=== PATIENT | male | born 1980 | race Caucasian/White ===

== ENCOUNTER 2020-08-24 13:34 | Inpatient (IN) | payer BC ==
[~2020-08-24] VITALS: Ht 167.6 cm; Wt 76.2 kg
[2020-08-24] VITALS (12 sets, daily range): BP systolic 87–103; BP diastolic 35–55
[2020-08-24] MEDS ORDERED: PROPOFOL 10MG/ML 100ML 100 ML IV SCH (14:00)
[2020-08-24] MEDS ORDERED: ETOMIDATE 2MG/ML 10ML VIAL IV ONE (14:00)
[2020-08-24] MEDS ORDERED: FENTANYL CITRATE/PF 500 MCG in SODIUM CHLORIDE 0.9% 40 ML IV PRN (14:00)
[2020-08-24] MEDS ORDERED: SUCCINYLCHOLINE CHLORIDE 200MG/10ML IV ONE (14:00)
[2020-08-24] MEDS ORDERED: SODIUM CHLORIDE 0.9% 1,000 ML IV ONE ×5 (14:00→16:15)
[2020-08-24] MEDS ORDERED: MIDAZOLAM HCL 100 MG in DEXT 5% WATER 80 ML IV ONE (14:00)
[2020-08-24] MEDS ORDERED: MIDAZOLAM HCL 2 MG/2 ML VIAL IV ONE (14:00)
[2020-08-24] MEDS ORDERED: MIDAZOLAM HCL 100 MG in SODIUM CHLORIDE 0.9% 80 ML IV SCH (14:15)
[2020-08-24] MEDS ORDERED: FENTANYL CITRATE 2,500 MCG in SODIUM CHLORIDE 0.9% 200 ML IV PRN (14:15)
[2020-08-24] MEDS ORDERED: MIDAZOLAM HCL 100 MG in DEXT 5% WATER 80 ML IV SCH (14:15)
[2020-08-24 14:34] LABS: CLARITY URINE CLEAR (CLEAR); COLOR URINE YELLOW (YELLOW); KETONES URINE 2+ (NEGATIVE); LEUKOCYTE ESTERASE URINE NEGATIVE (NEGATIVE); NITRITE URINE NEGATIVE (NEGATIVE); OCCULT BLOOD URINE TRACE (NEGATIVE); PROTEIN URINE NEGATIVE (NEGATIVE); SPECIFIC GRAVITY URINE 1.028 (1.005-1.030); UROBILINOGEN URINE 0.2 E.U./dL (0.2-1.0)
[2020-08-24 14:38] LABS: HEMATOCRIT. 50.4 % (42.0-52.0); HEMOGLOBIN. 13.1 g/dL (14.0-18.0); MEAN CORPUSCULAR VOLUME 107.5 fL (80.0-94.0); MEAN PLATELET VOLUME 10.5 fl (7.4-10.4); PLATELET 450 x1000/uL (130-400); RED BLOOD CELL COUNT 4.69 mill/uL (4.7-6.1); RED CELL DISTRIBUTION WIDTH 15.3 % (11.6-14.6)
[2020-08-24 14:54] LABS: CHLORIDE 81 mEq/L (98-107)
[2020-08-24 15:00] LABS: ETHANOL BLOOD < 10 mg/dL
[2020-08-24 15:01] LABS: *AMPHETAMINES SCREEN URINE NEGATIVE (NEGATIVE); *BARBITURATES SCREEN URINE NEGATIVE (NEGATIVE); *BENZODIAZEPINES SCREEN URINE NEGATIVE (NEGATIVE); *COCAINE SCREEN URINE NEGATIVE (NEGATIVE)
[2020-08-24 15:02] LABS: PLATELET ESTIMATE INCREASED
[2020-08-24 15:02] LABS: CANNABINOID URINE SCREEN NEGATIVE (NEGATIVE); METHADONE URINE SCREEN NEGATIVE (NEGATIVE); OPIATES URINE SCREEN NEGATIVE (NEGATIVE); PHENCYCLIDINE URINE SCREEN NEGATIVE (NEGATIVE)
[2020-08-24 15:03] LABS: CREATINE KINASE 282 IU/L (39-308)
[2020-08-24] MEDS ORDERED: PANTOPRAZOLE 80 MG in SODIUM CHLORIDE 0.9% 100 ML IV SCH (15:30)
[2020-08-24] MEDS ORDERED: PIPERACILLIN SODIUM/TAZOBACTAM 4.5 G in DEXT 5% WATER 100 ML IV SCH (15:30)
[2020-08-24] MEDS ORDERED: INSULIN REGULAR (DRIP) 100 UNITS in SODIUM CHLORIDE 0.9% 99 ML IV ONE (15:30)
[2020-08-24 15:38] LABS: INR 2.2; PROTHROMBIN TIME 21.9 sec (9.6-11.0)
[2020-08-24] MEDS ORDERED: INSULIN REGULAR (DRIP) 100 UNITS in SODIUM CHLORIDE 0.9% 99 ML IV SCH (16:15)
[2020-08-24] MEDS ORDERED: PANTOPRAZOLE SODIUM 40 MG/VIAL IV ONE ×2 (16:26→17:29)
[2020-08-24 16:57] LABS: BG BASE EXCESS -26.2 mmol/L (-2.0-2.0); BG CARBOXYHEMOGLOBIN 0.3 % (0.5-1.5); BG DEOXYHEMOGLOBIN 4.3 % (0.0-5.0); BG FRACTION INSPIRED OXYGEN 60; BG METHEMOGLOBIN 0.1 % (0.0-1.5); BG OXYGEN SATURATION 95.7 % (92.0-98.5); BG OXYHEMOGLOBIN 95.3 % (94.0-97.0); BG PCO2 33.2 mmHg (35.0-45.0); BG PH 6.876 (7.350-7.450); BG PO2 110.9 mmHg (75.0-100.0); BG SAMPLE SITE LEFT BRACHIAL; BG TOTAL HEMOGLOBIN 10.6 g/dL (12.0-18.0); BG VENT MODE VENT - AC
[2020-08-24] MEDS ORDERED: SODIUM BICARBONATE 8.4% 1 MEQ/ML 50ML SYR IV ONE (17:00)
[2020-08-24] MEDS ORDERED: NOREPINEPHRINE 8 MG in DEXT 5% WATER 242 ML IV PRN ×2 (17:15→18:00)
[2020-08-24] MEDS ORDERED: GUAIFENESIN 200MG/10ML SUGAR FREE UDC PO PRN (17:15)
[2020-08-24] MEDS ORDERED: DEXTROSE 50% WATER 50ML SYRINGE IV PRN ×2 (17:15)
[2020-08-24] MEDS ORDERED: ALBUTEROL 6.7GM HFA INHALER ORI PRN (17:15)
[2020-08-24] MEDS ORDERED: ONDANSETRON HCL 4MG/2ML INJ IV PRN (17:15)
[2020-08-24] MEDS ORDERED: CLONIDINE 0.1MG TABLET PO PRN (17:15)
[2020-08-24] MEDS ORDERED: DOCUSATE SODIUM 100MG CAPSULE PO PRN (17:15)
[2020-08-24] MEDS ORDERED: MAGNESIUM/ALUMINUM HYDROXIDE/SIMETHICONE 30ML UDC PO PRN (17:15)
[2020-08-24] MEDS ORDERED: CEFTRIAXONE 1 G PREMIX 50 ML IV SCH (18:30)
[2020-08-24] MEDS: BLOOD SUGAR DIAGNOSTIC STRIP TEST SCH ×5 (19:00→23:13)
[2020-08-24] MEDS ORDERED: AZITHROMYCIN 500 MG in DEXT 5% WATER 250 ML IV SCH (20:00)
[2020-08-24 20:35] LABS: VITAMIN B12 SERUM 1995 pg/mL (211-911)
[2020-08-24 20:37] LABS: FOLIC ACID (FOLATE) SERUM > 20.00 ng/mL (>5.38)
[2020-08-24 20:38] LABS: TOTAL IRON BINDING CAPACITY 245 ug/dL (250-450)
[2020-08-24] MEDS: CEFTRIAXONE 1,000 MG in DEXTROSE 5% WATER 50 ML IV SCH (20:38)
[2020-08-24] MEDS: INSULIN REGULAR (DRIP) 100 UNITS in SODIUM CHLORIDE 0.9% 99 ML IV SCH (20:40)
[2020-08-24] MEDS: PROPOFOL 10MG/ML 100ML 100 ML IV PRN (20:43)
[2020-08-24] MEDS ORDERED: ALBUTEROL 6.7GM HFA INHALER ORI SCH (21:00)
[2020-08-24] MEDS: IPRATROPIUM/ALBUTEROL 0.5-3(2.5)MG/3ML NEB HHN SCH (21:01)
[2020-08-24] MEDS: SODIUM CHLORIDE 0.9% 1,000 ML IV SCH (22:05)
[2020-08-24 22:09] LABS: BG BASE EXCESS -17.2 mmol/L (-2.0-2.0); BG CARBOXYHEMOGLOBIN 0.2 % (0.5-1.5); BG DEOXYHEMOGLOBIN 7.1 % (0.0-5.0); BG FRACTION INSPIRED OXYGEN 60; BG HCO3 ACT 10.8 mmol/L (22.0-26.0); BG METHEMOGLOBIN 0.1 % (0.0-1.5); BG OXYGEN SATURATION 92.9 % (92.0-98.5); BG OXYHEMOGLOBIN 92.6 % (94.0-97.0); BG PCO2 33.1 mmHg (35.0-45.0); BG PH 7.132 (7.350-7.450); BG PO2 70.9 mmHg (75.0-100.0); BG SAMPLE SITE RIGHT BRACHIAL; BG TOTAL HEMOGLOBIN 12.8 g/dL (12.0-18.0); BG VENT MODE VENT - AC
[2020-08-24] MEDS: FENTANYL CITRATE/PF 2,500 MCG in SODIUM CHLORIDE 0.9% 200 ML IV PRN (23:28)
[2020-08-24] MEDS ORDERED: SODIUM BICARBONATE 100 MEQ in SODIUM CHLORIDE 0.45% 1,000 ML IV SCH (23:30)
[2020-08-24 23:55] LABS: CREATINE KINASE 291 IU/L (39-308)
[2020-08-25] VITALS (79 sets, daily range): BP systolic 92–159; BP diastolic 46–88
[2020-08-25] MEDS: BLOOD SUGAR DIAGNOSTIC STRIP TEST SCH ×23 (00:06→23:00)
[2020-08-25] MEDS: PROPOFOL 10MG/ML 100ML 100 ML IV PRN ×2 (00:35→06:30)
[2020-08-25] MEDS: IPRATROPIUM/ALBUTEROL 0.5-3(2.5)MG/3ML NEB HHN SCH ×5 (01:05→20:04)
[2020-08-25] MEDS ORDERED: DOXE50CA4 PO (01:15)
[2020-08-25] MEDS ORDERED: DOCU-272 PO (01:15)
[2020-08-25] MEDS ORDERED: BUPR1TAB33 SL (01:15)
[2020-08-25] MEDS ORDERED: INSU100I28 SQ (01:15)
[2020-08-25] MEDS ORDERED: THIA100T72 PO (01:15)
[2020-08-25] MEDS ORDERED: LOSA50TA41 PO (01:15)
[2020-08-25] MEDS ORDERED: BISA5TAB PO (01:15)
[2020-08-25] MEDS ORDERED: CLON0.1T PO (01:15)
[2020-08-25] MEDS ORDERED: DICY10SO PO (01:15)
[2020-08-25] MEDS ORDERED: METH-774 PO (01:15)
[2020-08-25] MEDS ORDERED: ROPI2TAB28 PO (01:15)
[2020-08-25] MEDS ORDERED: BISA-81 PO (01:15)
[2020-08-25] MEDS ORDERED: FOLI-43 PO (01:15)
[2020-08-25] MEDS: INSULIN REGULAR (DRIP) 100 UNITS in SODIUM CHLORIDE 0.9% 99 ML IV SCH ×4 (01:26→17:16)
[2020-08-25] MEDS: SODIUM CHLORIDE 0.9% 1,000 ML IV SCH (03:44)
[2020-08-25 05:26] LABS: CHLORIDE 121 mEq/L (98-107)
[2020-08-25 05:29] LABS: BASOPHILS % 0.2 % (0.0-2.0); HEMATOCRIT. 31.8 % (42.0-52.0); LYMPHOCYTES % 9.9 % (20.0-50.0); MEAN CORPUSCULAR HEMOGLOBIN 28.2 pg (28.0-32.0); MEAN CORPUSCULAR VOLUME 81.3 fL (80.0-94.0); MEAN PLATELET VOLUME 8.8 fl (7.4-10.4); MONOCYTES % 6.5 % (2.0-8.0); NEUTROPHILS % 83.4 % (40.0-76.0); PLATELET 223 x1000/uL (130-400); RED BLOOD CELL COUNT 3.91 mill/uL (4.7-6.1)
[2020-08-25 05:37] LABS: CREATINE KINASE 181 IU/L (39-308)
[2020-08-25 05:52] LABS: PHOSPHORUS 0.2 mg/dL (2.5-4.9)
[2020-08-25] MEDS ORDERED: POTASSIUM CHLORIDE 20MEQ/PACKET PO NR (07:00)
[2020-08-25] MEDS ORDERED: *PATIENT'S OWN MEDICATION STORAGE XX SCH (08:00)
[2020-08-25] MEDS ORDERED: SODIUM CHLORIDE 0.45% 1,000 ML IV SCH (08:30)
[2020-08-25] MEDS: PANTOPRAZOLE SODIUM 40 MG/VIAL IV SCH (08:37)
[2020-08-25] MEDS ORDERED: KCL 20MEQ/100ML PREMIX 100 ML IV NR (09:00)
[2020-08-25] MEDS ORDERED: POTASSIUM PHOS,M-BASIC-D-BASIC 30 MMOL in DEXT 5% WATER 500 ML IV ONE (09:00)
[2020-08-25] MEDS: DEXT 5%/0.45% NACL KCL 20MEQ/L 1,000 ML IV SCH ×3 (10:57→20:45)
[2020-08-25 11:04] LABS: BG BASE EXCESS 3.6 mmol/L (-2.0-2.0); BG CARBOXYHEMOGLOBIN 0.3 % (0.5-1.5); BG FRACTION INSPIRED OXYGEN 70; BG METHEMOGLOBIN 0.1 % (0.0-1.5); BG OXYHEMOGLOBIN 96.6 % (94.0-97.0); BG PCO2 36.4 mmHg (35.0-45.0); BG PH 7.488 (7.350-7.450); BG PO2 90.4 mmHg (75.0-100.0); BG SAMPLE SITE RIGHT BRACHIAL; BG TOTAL HEMOGLOBIN 10.4 g/dL (12.0-18.0); BG VENT MODE VENT - AC
[2020-08-25] MEDS ORDERED: METOPROLOL TARTRATE 5MG/5ML VIAL IV NR (11:30)
[2020-08-25] MEDS: MIDAZOLAM 100MG/100ML PMX 100 ML IV PRN (12:32)
[2020-08-25] MEDS: AZITHROMYCIN 500 MG in DEXT 5% WATER 250 ML IV SCH (15:44)
[2020-08-25 15:51] LABS: PHOSPHORUS 1.3 mg/dL (2.5-4.9)
[2020-08-25] MEDS: FENTANYL CITRATE/PF 2,500 MCG in SODIUM CHLORIDE 0.9% 200 ML IV PRN (17:43)
[2020-08-25] MEDS: CEFTRIAXONE 1,000 MG in DEXTROSE 5% WATER 50 ML IV SCH (20:45)
[2020-08-25] MEDS: ACETAMINOPHEN 325MG TABLET PO PRN (21:22)
[2020-08-25] MEDS ORDERED: SODIUM CHLORIDE 0.9% 1,000 ML IV ONE (21:30)
[2020-08-26] VITALS (82 sets, daily range): BP systolic 119–171; BP diastolic 63–89
[2020-08-26] MEDS: IPRATROPIUM/ALBUTEROL 0.5-3(2.5)MG/3ML NEB HHN SCH ×4 (00:26→22:04)
[2020-08-26] MEDS: BLOOD SUGAR DIAGNOSTIC STRIP TEST SCH ×12 (01:00→20:40)
[2020-08-26] MEDS: DEXT 5%/0.45% NACL KCL 20MEQ/L 1,000 ML IV SCH ×3 (01:38→11:49)
[2020-08-26] MEDS: INSULIN REGULAR (DRIP) 100 UNITS in SODIUM CHLORIDE 0.9% 99 ML IV SCH (02:59)
[2020-08-26] MEDS: ACETAMINOPHEN 325MG TABLET PO PRN ×4 (05:28→20:51)
[2020-08-26 05:50] LABS: CHLORIDE 130 mEq/L (98-107); HEMATOCRIT. 29.2 % (42.0-52.0); MEAN CORPUSCULAR HEMOGLOBIN 27.8 pg (28.0-32.0); MEAN CORPUSCULAR VOLUME 81.1 fL (80.0-94.0); MEAN PLATELET VOLUME 8.4 fl (7.4-10.4); PLATELET 172 x1000/uL (130-400); RED CELL DISTRIBUTION WIDTH 13.5 % (11.6-14.6)
[2020-08-26 05:54] LABS: PHOSPHORUS 1.8 mg/dL (2.5-4.9)
[2020-08-26] MEDS: MIDAZOLAM 100MG/100ML PMX 100 ML IV PRN ×2 (06:37→17:44)
[2020-08-26] MEDS: FENTANYL CITRATE/PF 2,500 MCG in SODIUM CHLORIDE 0.9% 200 ML IV PRN ×2 (08:10→20:13)
[2020-08-26] MEDS: PANTOPRAZOLE SODIUM 40 MG/VIAL IV SCH (08:38)
[2020-08-26] MEDS ORDERED: DEXTROSE 50% WATER 50ML SYRINGE IV PRN (08:45)
[2020-08-26] MEDS ORDERED: POTASSIUM PHOS,M-BASIC-D-BASIC 20 MMOL in DEXT 5% WATER 243.3333 ML IV ONE (09:00)
[2020-08-26 10:10] LABS: BG BASE EXCESS -0.9 mmol/L (-2.0-2.0); BG CARBOXYHEMOGLOBIN 0.3 % (0.5-1.5); BG DEOXYHEMOGLOBIN 2.1 % (0.0-5.0); BG FRACTION INSPIRED OXYGEN 70; BG METHEMOGLOBIN 0.2 % (0.0-1.5); BG OXYGEN SATURATION 97.9 % (92.0-98.5); BG OXYHEMOGLOBIN 97.4 % (94.0-97.0); BG PH 7.435 (7.350-7.450); BG PO2 117.5 mmHg (75.0-100.0); BG SAMPLE SITE LEFT RADIAL; BG TOTAL HEMOGLOBIN 9.8 g/dL (12.0-18.0); BG TOTAL RESPIRATORY RATE 28 b/min; BG VENT MODE VENT - AC
[2020-08-26] MEDS: INSULIN GLARGINE UD 100 UNITS/ML SYR SUBCUT SCH (11:06)
[2020-08-26 11:18] LABS: PLATELET ESTIMATE NORMAL
[2020-08-26] MEDS: INSULIN LISPRO 100 UNITS/ML SUBCUT SCH ×3 (12:41→20:53)
[2020-08-26] MEDS: AZITHROMYCIN 500 MG in DEXT 5% WATER 250 ML IV SCH (13:33)
[2020-08-26] MEDS: CEFTRIAXONE 1,000 MG in DEXTROSE 5% WATER 50 ML IV SCH (20:49)
[2020-08-27] VITALS (49 sets, daily range): BP systolic 103–167; BP diastolic 57–99
[2020-08-27] MEDS: ACETAMINOPHEN 325MG TABLET PO PRN ×5 (00:52→23:36)
[2020-08-27] MEDS: IPRATROPIUM/ALBUTEROL 0.5-3(2.5)MG/3ML NEB HHN SCH ×4 (03:24→20:42)
[2020-08-27] MEDS: MIDAZOLAM 100MG/100ML PMX 100 ML IV PRN ×2 (04:40→16:27)
[2020-08-27] MEDS: FENTANYL CITRATE/PF 2,500 MCG in SODIUM CHLORIDE 0.9% 200 ML IV PRN ×3 (04:41→23:08)
[2020-08-27] MEDS: INSULIN LISPRO 100 UNITS/ML SUBCUT SCH ×4 (06:39→20:55)
[2020-08-27] MEDS: BLOOD SUGAR DIAGNOSTIC STRIP TEST SCH ×4 (06:43→20:55)
[2020-08-27 06:54] LABS: CHLORIDE 124 mEq/L (98-107)
[2020-08-27 06:55] LABS: HEMATOCRIT. 28.7 % (42.0-52.0); HEMOGLOBIN. 9.5 g/dL (14.0-18.0); MEAN CORPUSCULAR HEMOGLOBIN 27.6 pg (28.0-32.0); MEAN CORPUSCULAR VOLUME 83.4 fL (80.0-94.0); RED BLOOD CELL COUNT 3.44 mill/uL (4.7-6.1); RED CELL DISTRIBUTION WIDTH 14.1 % (11.6-14.6)
[2020-08-27 08:13] LABS: BG BASE EXCESS 2.6 mmol/L (-2.0-2.0); BG CARBOXYHEMOGLOBIN 0.3 % (0.5-1.5); BG DEOXYHEMOGLOBIN 2.7 % (0.0-5.0); BG FRACTION INSPIRED OXYGEN 60; BG METHEMOGLOBIN 0.1 % (0.0-1.5); BG OXYGEN SATURATION 97.3 % (92.0-98.5); BG OXYHEMOGLOBIN 96.9 % (94.0-97.0); BG PCO2 35.4 mmHg (35.0-45.0); BG PH 7.483 (7.350-7.450); BG PO2 95.6 mmHg (75.0-100.0); BG SAMPLE SITE RIGHT RADIAL; BG TOTAL HEMOGLOBIN 10.5 g/dL (12.0-18.0); BG VENT MODE VENT - AC
[2020-08-27] MEDS: PANTOPRAZOLE SODIUM 40 MG/VIAL IV SCH (08:50)
[2020-08-27] MEDS ORDERED: METOCLOPRAMIDE HCL 10MG/2ML VIAL IV SCH (09:15)
[2020-08-27 10:25] LABS: PLATELET ESTIMATE SLIGHTLY DECREASED
[2020-08-27 10:27] LABS: MEAN PLATELET VOLUME 9.3 fl (7.4-10.4); PLATELET 118 x1000/uL (130-400)
[2020-08-27] MEDS: INSULIN GLARGINE UD 100 UNITS/ML SYR SUBCUT SCH (10:31)
[2020-08-27] MEDS: AZITHROMYCIN 500 MG in DEXT 5% WATER 250 ML IV SCH (14:18)
[2020-08-27] MEDS: METOPROLOL TARTRATE 25MG TABLET PO SCH ×3 (16:25→21:14)
[2020-08-27] MEDS: METOCLOPRAMIDE HCL 10MG/2ML VIAL IV PRN (16:26)
[2020-08-27] MEDS: CEFTRIAXONE 1,000 MG in DEXTROSE 5% WATER 50 ML IV SCH (20:54)
[2020-08-28] VITALS (45 sets, daily range): BP systolic 114–164; BP diastolic 64–98
[2020-08-28] MEDS: IPRATROPIUM/ALBUTEROL 0.5-3(2.5)MG/3ML NEB HHN SCH ×3 (02:22→15:24)
[2020-08-28] MEDS: MIDAZOLAM 100MG/100ML PMX 100 ML IV PRN ×2 (04:34→17:00)
[2020-08-28] MEDS: ACETAMINOPHEN 325MG TABLET PO PRN (06:30)
[2020-08-28 06:51] LABS: CHLORIDE 118 mEq/L (98-107)
[2020-08-28 06:52] LABS: BASOPHILS % 0.7 % (0.0-2.0); EOSINOPHILS % 3.5 % (0.0-5.0); HEMOGLOBIN. 10.1 g/dL (14.0-18.0); LYMPHOCYTES % 15.8 % (20.0-50.0); MEAN CORPUSCULAR HEMOGLOBIN 27.9 pg (28.0-32.0); MEAN CORPUSCULAR VOLUME 83.4 fL (80.0-94.0); MEAN PLATELET VOLUME 9.4 fl (7.4-10.4); MONOCYTES % 6.5 % (2.0-8.0); NEUTROPHILS % 73.5 % (40.0-76.0); PLATELET 128 x1000/uL (130-400); RED CELL DISTRIBUTION WIDTH 13.9 % (11.6-14.6)
[2020-08-28] MEDS: FENTANYL CITRATE/PF 2,500 MCG in SODIUM CHLORIDE 0.9% 200 ML IV PRN ×2 (08:00→17:00)
[2020-08-28 08:04] LABS: BG BASE EXCESS -1.5 mmol/L (-2.0-2.0); BG CARBOXYHEMOGLOBIN 0.3 % (0.5-1.5); BG DEOXYHEMOGLOBIN 9.7 % (0.0-5.0); BG FRACTION INSPIRED OXYGEN 50; BG HCO3 ACT 22.2 mmol/L (22.0-26.0); BG METHEMOGLOBIN 0.3 % (0.0-1.5); BG OXYGEN SATURATION 90.2 % (92.0-98.5); BG OXYHEMOGLOBIN 89.7 % (94.0-97.0); BG PCO2 33.8 mmHg (35.0-45.0); BG PEEP (cmH2O) 0 cmH2O; BG PH 7.436 (7.350-7.450); BG PO2 54.1 mmHg (75.0-100.0); BG SAMPLE SITE RIGHT RADIAL; BG TOTAL HEMOGLOBIN 10.2 g/dL (12.0-18.0); BG VENT MODE VENT - AC
[2020-08-28] MEDS: METOPROLOL TARTRATE 25MG TABLET PO SCH ×2 (08:45→20:57)
[2020-08-28] MEDS: PANTOPRAZOLE SODIUM 40 MG/VIAL IV SCH (08:45)
[2020-08-28] MEDS: INSULIN GLARGINE UD 100 UNITS/ML SYR SUBCUT SCH (10:54)
[2020-08-28] MEDS ORDERED: PIPERACILLIN/TAZOBACTAM 3.375 G/VIAL IV SCH (12:00)
[2020-08-28] MEDS: BLOOD SUGAR DIAGNOSTIC STRIP TEST SCH ×2 (12:08→17:43)
[2020-08-28] MEDS: SODIUM HYPOCHLORITE 0.125% 473ML SOLUTION TOP SCH ×2 (12:09→17:22)
[2020-08-28] MEDS: PIPERACILLIN/TAZOBACTAM 3.375 G in DEXT 5% WATER 100 ML IV SCH ×2 (12:20→17:46)
[2020-08-28] MEDS: INSULIN LISPRO 100 UNITS/ML SUBCUT SCH ×2 (12:22→17:49)
[2020-08-28] MEDS: VANCOMYCIN 1500MG in DEXTROSE 5% WATER 250ML IV SCH (13:55)
[2020-08-28] MEDS: METOCLOPRAMIDE HCL 10MG/2ML VIAL IV PRN (14:42)
[2020-08-29] VITALS (48 sets, daily range): BP systolic 120–165; BP diastolic 67–100
[2020-08-29] MEDS: PIPERACILLIN/TAZOBACTAM 3.375 G in DEXT 5% WATER 100 ML IV SCH ×5 (00:02→23:46)
[2020-08-29] MEDS: VANCOMYCIN 1500MG in DEXTROSE 5% WATER 250ML IV SCH ×3 (00:16→23:46)
[2020-08-29] MEDS: INSULIN LISPRO 100 UNITS/ML SUBCUT SCH ×5 (00:17→23:46)
[2020-08-29] MEDS: BLOOD SUGAR DIAGNOSTIC STRIP TEST SCH ×5 (00:17→23:39)
[2020-08-29] MEDS: ACETAMINOPHEN 325MG TABLET PO PRN ×3 (00:28→23:58)
[2020-08-29] MEDS: IPRATROPIUM/ALBUTEROL 0.5-3(2.5)MG/3ML NEB HHN SCH ×4 (01:09→20:27)
[2020-08-29] MEDS: MIDAZOLAM 100MG/100ML PMX 100 ML IV PRN ×2 (02:01→14:31)
[2020-08-29] MEDS: FENTANYL CITRATE/PF 2,500 MCG in SODIUM CHLORIDE 0.9% 200 ML IV PRN ×3 (03:00→21:15)
[2020-08-29 06:37] LABS: HEMOGLOBIN. 9.2 g/dL (14.0-18.0); MEAN CORPUSCULAR HEMOGLOBIN 27.5 pg (28.0-32.0); MEAN CORPUSCULAR VOLUME 83.4 fL (80.0-94.0); MEAN PLATELET VOLUME 9.2 fl (7.4-10.4); PLATELET 119 x1000/uL (130-400); RED BLOOD CELL COUNT 3.36 mill/uL (4.7-6.1); RED CELL DISTRIBUTION WIDTH 13.5 % (11.6-14.6)
[2020-08-29 06:42] LABS: CHLORIDE 110 mEq/L (98-107)
[2020-08-29 07:20] LABS: BG BASE EXCESS 1.2 mmol/L (-2.0-2.0); BG CARBOXYHEMOGLOBIN 0.3 % (0.5-1.5); BG DEOXYHEMOGLOBIN 7.6 % (0.0-5.0); BG FRACTION INSPIRED OXYGEN 50; BG HCO3 ACT 24.9 mmol/L (22.0-26.0); BG METHEMOGLOBIN 0.3 % (0.0-1.5); BG OXYGEN SATURATION 92.4 % (92.0-98.5); BG OXYHEMOGLOBIN 91.8 % (94.0-97.0); BG PCO2 35.8 mmHg (35.0-45.0); BG PEEP (cmH2O) 0 cmH2O; BG PO2 60.6 mmHg (75.0-100.0); BG SAMPLE SITE RIGHT RADIAL; BG TOTAL HEMOGLOBIN 9.6 g/dL (12.0-18.0); BG VENT MODE VENT - AC
[2020-08-29] MEDS: METOPROLOL TARTRATE 25MG TABLET PO SCH ×2 (08:04→21:12)
[2020-08-29] MEDS: PANTOPRAZOLE SODIUM 40 MG/VIAL IV SCH (08:05)
[2020-08-29] MEDS: SODIUM HYPOCHLORITE 0.125% 473ML SOLUTION TOP SCH ×2 (08:05→16:40)
[2020-08-29] MEDS: INSULIN GLARGINE UD 100 UNITS/ML SYR SUBCUT SCH (09:18)
[2020-08-29] MEDS ORDERED: TETANUS, DIPHTHERIA, PERTUSSIS VAC/PF 0.5ML (>7YR OLD) IM ONE (14:30)
[2020-08-29] MEDS: THIAMINE HCL 100MG TABLET PO SCH (16:40)
[2020-08-29 18:11] LABS: PLATELET ESTIMATE DECREASED
[2020-08-29] MEDS: QUETIAPINE FUMARATE 50MG TABLET PO SCH (21:12)
[2020-08-30] VITALS (50 sets, daily range): BP systolic 106–164; BP diastolic 62–109
[2020-08-30] MEDS: IPRATROPIUM/ALBUTEROL 0.5-3(2.5)MG/3ML NEB HHN SCH ×2 (00:18→20:37)
[2020-08-30] MEDS: MIDAZOLAM 100MG/100ML PMX 100 ML IV PRN ×2 (05:40→19:30)
[2020-08-30] MEDS: PIPERACILLIN/TAZOBACTAM 3.375 G in DEXT 5% WATER 100 ML IV SCH ×3 (05:40→17:24)
[2020-08-30] MEDS: BLOOD SUGAR DIAGNOSTIC STRIP TEST SCH ×3 (05:53→17:49)
[2020-08-30] MEDS: INSULIN LISPRO 100 UNITS/ML SUBCUT SCH ×3 (05:58→17:49)
[2020-08-30 06:38] LABS: CHLORIDE 107 mEq/L (98-107)
[2020-08-30] MEDS: ACETAMINOPHEN 325MG TABLET PO PRN ×2 (06:55→21:09)
[2020-08-30 07:05] LABS: HEPATITIS B SURFACE ANTIGEN NEGATIVE
[2020-08-30] MEDS: METOPROLOL TARTRATE 25MG TABLET PO SCH ×2 (07:44→21:09)
[2020-08-30] MEDS: FENTANYL CITRATE/PF 2,500 MCG in SODIUM CHLORIDE 0.9% 200 ML IV PRN ×2 (07:48→20:11)
[2020-08-30] MEDS: THIAMINE HCL 100MG TABLET PO SCH (08:16)
[2020-08-30] MEDS: SODIUM HYPOCHLORITE 0.125% 473ML SOLUTION TOP SCH (08:16)
[2020-08-30] MEDS: QUETIAPINE FUMARATE 50MG TABLET PO SCH ×2 (08:16→21:08)
[2020-08-30] MEDS: PANTOPRAZOLE SODIUM 40 MG/VIAL IV SCH (08:16)
[2020-08-30] MEDS: METOCLOPRAMIDE HCL 10MG/2ML VIAL IV PRN (08:17)
[2020-08-30 08:26] LABS: HEMATOCRIT. 27.4 % (42.0-52.0); HEMOGLOBIN. 9.1 g/dL (14.0-18.0); MEAN CORPUSCULAR HEMOGLOBIN 27.5 pg (28.0-32.0); MEAN CORPUSCULAR VOLUME 83.2 fL (80.0-94.0); MEAN PLATELET VOLUME 9.6 fl (7.4-10.4); PLATELET 151 x1000/uL (130-400); RED CELL DISTRIBUTION WIDTH 13.1 % (11.6-14.6)
[2020-08-30 08:30] LABS: BG BASE EXCESS 2.4 mmol/L (-2.0-2.0); BG CARBOXYHEMOGLOBIN 0.3 % (0.5-1.5); BG DEOXYHEMOGLOBIN 15.7 % (0.0-5.0); BG FRACTION INSPIRED OXYGEN 50; BG HCO3 ACT 26.1 mmol/L (22.0-26.0); BG METHEMOGLOBIN 0.3 % (0.0-1.5); BG OXYGEN SATURATION 84.2 % (92.0-98.5); BG OXYHEMOGLOBIN 83.7 % (94.0-97.0); BG PCO2 36.7 mmHg (35.0-45.0); BG PEEP (cmH2O) 0 cmH2O; BG SAMPLE SITE RIGHT RADIAL; BG TOTAL HEMOGLOBIN 9.6 g/dL (12.0-18.0); BG VENT MODE VENT - AC
[2020-08-30 09:09] LABS: PLATELET ESTIMATE NORMAL
[2020-08-30] MEDS ORDERED: POTASSIUM CHLORIDE 20MEQ/PACKET PO SCH (10:00)
[2020-08-30] MEDS: INSULIN GLARGINE UD 100 UNITS/ML SYR SUBCUT SCH (10:11)
[2020-08-30] MEDS: METOCLOPRAMIDE HCL 10MG/2ML VIAL IV SCH ×2 (12:00→17:24)
[2020-08-30] MEDS: VANCOMYCIN 1500MG in DEXTROSE 5% WATER 250ML IV SCH (12:43)
[2020-08-30 12:56] LABS: BG BASE EXCESS 3.5 mmol/L (-2.0-2.0); BG CARBOXYHEMOGLOBIN 0.3 % (0.5-1.5); BG DEOXYHEMOGLOBIN 4.9 % (0.0-5.0); BG FRACTION INSPIRED OXYGEN 50; BG HCO3 ACT 28.7 mmol/L (22.0-26.0); BG METHEMOGLOBIN 0.3 % (0.0-1.5); BG OXYGEN SATURATION 95.1 % (92.0-98.5); BG OXYHEMOGLOBIN 94.5 % (94.0-97.0); BG PCO2 46.8 mmHg (35.0-45.0); BG PH 7.405 (7.350-7.450); BG SAMPLE SITE RIGHT RADIAL; BG TOTAL HEMOGLOBIN 9.4 g/dL (12.0-18.0); BG VENT MODE VENT - CPAP
[2020-08-30] MEDS: LORAZEPAM 2MG/ML CPJ IV PRN (18:25)
[2020-08-31] VITALS (48 sets, daily range): BP systolic 105–160; BP diastolic 56–107
[2020-08-31] MEDS: VANCOMYCIN 1500MG in DEXTROSE 5% WATER 250ML IV SCH ×2 (00:44→12:22)
[2020-08-31] MEDS: PIPERACILLIN/TAZOBACTAM 3.375 G in DEXT 5% WATER 100 ML IV SCH ×4 (00:44→18:04)
[2020-08-31] MEDS: METOCLOPRAMIDE HCL 10MG/2ML VIAL IV SCH ×4 (00:44→18:04)
[2020-08-31] MEDS: LORAZEPAM 2MG/ML CPJ IV PRN ×3 (01:50→22:47)
[2020-08-31] MEDS: IPRATROPIUM/ALBUTEROL 0.5-3(2.5)MG/3ML NEB HHN SCH ×4 (03:00→21:07)
[2020-08-31] MEDS: FENTANYL CITRATE/PF 2,500 MCG in SODIUM CHLORIDE 0.9% 200 ML IV PRN ×2 (05:26→16:32)
[2020-08-31] MEDS: MIDAZOLAM 100MG/100ML PMX 100 ML IV PRN ×2 (05:45→19:00)
[2020-08-31] MEDS: BLOOD SUGAR DIAGNOSTIC STRIP TEST SCH ×4 (06:00→18:02)
[2020-08-31 06:07] LABS: HIV SCREEN 4G Non Reactive (Non Reactive)
[2020-08-31] MEDS: INSULIN LISPRO 100 UNITS/ML SUBCUT SCH ×4 (06:37→18:00)
[2020-08-31 06:53] LABS: HEMATOCRIT. 28.6 % (42.0-52.0); HEMOGLOBIN. 9.5 g/dL (14.0-18.0); MEAN CORPUSCULAR HEMOGLOBIN 27.5 pg (28.0-32.0); MEAN PLATELET VOLUME 9.2 fl (7.4-10.4); PLATELET 215 x1000/uL (130-400); RED BLOOD CELL COUNT 3.44 mill/uL (4.7-6.1)
[2020-08-31 07:05] LABS: CHLORIDE 107 mEq/L (98-107)
[2020-08-31] MEDS: PANTOPRAZOLE SODIUM 40 MG/VIAL IV SCH (08:22)
[2020-08-31] MEDS: QUETIAPINE FUMARATE 50MG TABLET PO SCH ×2 (08:22→22:14)
[2020-08-31] MEDS: THIAMINE HCL 100MG TABLET PO SCH (08:22)
[2020-08-31] MEDS: METOPROLOL TARTRATE 25MG TABLET PO SCH ×2 (08:25→22:13)
[2020-08-31] MEDS: POTASSIUM CHLORIDE 20MEQ/PACKET PO SCH (10:23)
[2020-08-31] MEDS: INSULIN GLARGINE UD 100 UNITS/ML SYR SUBCUT SCH (10:24)
[2020-08-31] MEDS ORDERED: LORAZEPAM 2MG/ML CPJ IV SCH (11:30)
[2020-08-31 11:44] LABS: PLATELET ESTIMATE NORMAL
[2020-08-31] MEDS ORDERED: MICAFUNGIN 100 MG in SODIUM CHLORIDE 0.9% 100 ML IV SCH (16:00)
[2020-09-01] VITALS (50 sets, daily range): BP systolic 112–172; BP diastolic 72–104
[2020-09-01] MEDS: BLOOD SUGAR DIAGNOSTIC STRIP TEST SCH ×4 (00:14→18:37)
[2020-09-01] MEDS: PIPERACILLIN/TAZOBACTAM 3.375 G in DEXT 5% WATER 100 ML IV SCH ×5 (00:49→23:55)
[2020-09-01] MEDS: VANCOMYCIN 1500MG in DEXTROSE 5% WATER 250ML IV SCH (00:49)
[2020-09-01] MEDS: METOCLOPRAMIDE HCL 10MG/2ML VIAL IV SCH ×5 (00:59→23:55)
[2020-09-01] MEDS: IPRATROPIUM/ALBUTEROL 0.5-3(2.5)MG/3ML NEB HHN SCH (01:56)
[2020-09-01] MEDS: FENTANYL CITRATE/PF 2,500 MCG in SODIUM CHLORIDE 0.9% 200 ML IV PRN (04:26)
[2020-09-01] MEDS: INSULIN LISPRO 100 UNITS/ML SUBCUT SCH ×4 (05:19→18:51)
[2020-09-01] MEDS: MIDAZOLAM 100MG/100ML PMX 100 ML IV PRN (05:53)
[2020-09-01 08:00] LABS: BG BASE EXCESS 2.3 mmol/L (-2.0-2.0); BG CARBOXYHEMOGLOBIN 0.3 % (0.5-1.5); BG DEOXYHEMOGLOBIN 1.9 % (0.0-5.0); BG FRACTION INSPIRED OXYGEN 40; BG HCO3 ACT 25.4 mmol/L (22.0-26.0); BG METHEMOGLOBIN 0.2 % (0.0-1.5); BG OXYGEN SATURATION 98.1 % (92.0-98.5); BG OXYHEMOGLOBIN 97.6 % (94.0-97.0); BG PCO2 33.2 mmHg (35.0-45.0); BG PEEP (cmH2O) 0 cmH2O; BG PH 7.502 (7.350-7.450); BG PO2 114.1 mmHg (75.0-100.0); BG SAMPLE SITE RIGHT RADIAL; BG TOTAL HEMOGLOBIN 8.3 g/dL (12.0-18.0); BG VENT MODE VENT - AC/VC
[2020-09-01] MEDS ORDERED: MIDAZOLAM HCL 5 MG/5 ML VIAL ONE (08:52)
[2020-09-01] MEDS ORDERED: TETRACAINE/BENZOCAINE/BUTAMBEN 20 GM SPRAY MM ONE (08:52)
[2020-09-01] MEDS ORDERED: FENTANYL CITRATE/PF 50MCG/ML 5ML VIAL ONE (08:52)
[2020-09-01] MEDS ORDERED: LIDOCAINE HCL 2% JELLY 5ML ONE (08:52)
[2020-09-01] MEDS: INSULIN GLARGINE UD 100 UNITS/ML SYR SUBCUT SCH (10:00)
[2020-09-01] MEDS: THIAMINE HCL 100MG TABLET PO SCH (10:55)
[2020-09-01] MEDS: POTASSIUM CHLORIDE 20MEQ/PACKET PO SCH (10:55)
[2020-09-01] MEDS: PANTOPRAZOLE SODIUM 40 MG/VIAL IV SCH (10:55)
[2020-09-01] MEDS: QUETIAPINE FUMARATE 50MG TABLET PO SCH ×2 (10:56→21:15)
[2020-09-01] MEDS: METOPROLOL TARTRATE 25MG TABLET PO SCH ×2 (10:56→21:15)
[2020-09-01 13:13] LABS: BG BASE EXCESS -0.3 mmol/L (-2.0-2.0); BG CARBOXYHEMOGLOBIN 0.3 % (0.5-1.5); BG DEOXYHEMOGLOBIN 5.4 % (0.0-5.0); BG HCO3 ACT 24.1 mmol/L (22.0-26.0); BG METHEMOGLOBIN 0.2 % (0.0-1.5); BG OXYGEN SATURATION 94.6 % (92.0-98.5); BG OXYHEMOGLOBIN 94.1 % (94.0-97.0); BG PCO2 38.4 mmHg (35.0-45.0); BG PH 7.416 (7.350-7.450); BG PO2 79.1 mmHg (75.0-100.0); BG SAMPLE SITE RIGHT BRACHIAL; BG TOTAL HEMOGLOBIN 8.5 g/dL (12.0-18.0); BG TOTAL RESPIRATORY RATE 26 b/min; BG VENT MODE VENT - CPAP
[2020-09-01] MEDS: LORAZEPAM 2MG/ML CPJ IV PRN ×2 (13:38→23:55)
[2020-09-01] MEDS ORDERED: IPRATROPIUM/ALBUTEROL 0.5-3(2.5)MG/3ML NEB HHN PRN (16:30)
[2020-09-02] VITALS (45 sets, daily range): BP systolic 130–172; BP diastolic 68–104
[2020-09-02] MEDS: PIPERACILLIN/TAZOBACTAM 3.375 G in DEXT 5% WATER 100 ML IV SCH (06:04)
[2020-09-02] MEDS: METOCLOPRAMIDE HCL 10MG/2ML VIAL IV SCH ×3 (06:04→18:00)
[2020-09-02] MEDS: INSULIN LISPRO 100 UNITS/ML SUBCUT SCH ×4 (06:06→18:33)
[2020-09-02] MEDS: BLOOD SUGAR DIAGNOSTIC STRIP TEST SCH ×4 (06:21→18:33)
[2020-09-02] MEDS: QUETIAPINE FUMARATE 50MG TABLET PO SCH ×2 (09:08→22:21)
[2020-09-02] MEDS: THIAMINE HCL 100MG TABLET PO SCH (09:08)
[2020-09-02] MEDS: METOPROLOL TARTRATE 25MG TABLET PO SCH ×2 (09:08→22:21)
[2020-09-02] MEDS: POTASSIUM CHLORIDE 20MEQ/PACKET PO SCH (09:08)
[2020-09-02] MEDS: PANTOPRAZOLE SODIUM 40 MG/VIAL IV SCH (09:26)
[2020-09-02] MEDS: INSULIN GLARGINE UD 100 UNITS/ML SYR SUBCUT SCH (12:13)
[2020-09-02] MEDS: LORAZEPAM 2MG/ML CPJ IV PRN (12:30)
[2020-09-03] MEDS: LORAZEPAM 2MG/ML CPJ IV PRN ×4 (00:19→22:12)
[2020-09-03] MEDS: METOCLOPRAMIDE HCL 10MG/2ML VIAL IV SCH ×4 (00:19→18:50)
[2020-09-03] MEDS: INSULIN LISPRO 100 UNITS/ML SUBCUT SCH ×4 (00:20→18:51)
[2020-09-03] MEDS: BLOOD SUGAR DIAGNOSTIC STRIP TEST SCH ×4 (00:34→18:51)
[2020-09-03 01:37] VITALS: BP 150/97
[2020-09-03 05:30] VITALS: BP 153/85
[2020-09-03 08:00] VITALS: BP 148/91
[2020-09-03] MEDS: THIAMINE HCL 100MG TABLET PO SCH (08:15)
[2020-09-03] MEDS: PANTOPRAZOLE SODIUM 40 MG/VIAL IV SCH (08:15)
[2020-09-03] MEDS: QUETIAPINE FUMARATE 50MG TABLET PO SCH ×2 (08:15→22:10)
[2020-09-03] MEDS: POTASSIUM CHLORIDE 20MEQ/PACKET PO SCH (08:15)
[2020-09-03] MEDS: METOPROLOL TARTRATE 25MG TABLET PO SCH ×2 (08:15→22:10)
[2020-09-03] MEDS: INSULIN GLARGINE UD 100 UNITS/ML SYR SUBCUT SCH (09:27)
[2020-09-03 12:00] VITALS: BP 134/71
[2020-09-03 16:00] VITALS: BP 147/78
[2020-09-03 20:00] VITALS: BP 132/84
[2020-09-04] VITALS: BP 149/91
[2020-09-04] MEDS: BLOOD SUGAR DIAGNOSTIC STRIP TEST SCH ×4 (00:37→18:44)
[2020-09-04] MEDS: INSULIN LISPRO 100 UNITS/ML SUBCUT SCH ×4 (00:38→18:44)
[2020-09-04] MEDS: METOCLOPRAMIDE HCL 10MG/2ML VIAL IV SCH ×2 (00:41→06:01)
[2020-09-04 04:00] VITALS: BP 151/90
[2020-09-04 08:00] VITALS: BP 151/93
[2020-09-04 08:22] LABS: BASOPHILS % 0.8 % (0.0-2.0); EOSINOPHILS % 1.7 % (0.0-5.0); HEMATOCRIT. 31.3 % (42.0-52.0); HEMOGLOBIN. 10.4 g/dL (14.0-18.0); MEAN CORPUSCULAR HEMOGLOBIN 27.3 pg (28.0-32.0); MEAN CORPUSCULAR VOLUME 81.9 fL (80.0-94.0); MEAN PLATELET VOLUME 8.9 fl (7.4-10.4); MONOCYTES % 5.4 % (2.0-8.0); NEUTROPHILS % 77.1 % (40.0-76.0); PLATELET 617 x1000/uL (130-400); RED BLOOD CELL COUNT 3.82 mill/uL (4.7-6.1); RED CELL DISTRIBUTION WIDTH 12.9 % (11.6-14.6)
[2020-09-04 08:37] LABS: CHLORIDE 110 mEq/L (98-107)
[2020-09-04] MEDS: QUETIAPINE FUMARATE 50MG TABLET PO SCH ×2 (09:47→21:42)
[2020-09-04] MEDS: POTASSIUM CHLORIDE 20MEQ/PACKET PO SCH (09:47)
[2020-09-04] MEDS: INSULIN GLARGINE UD 100 UNITS/ML SYR SUBCUT SCH (09:48)
[2020-09-04] MEDS: THIAMINE HCL 100MG TABLET PO SCH (09:48)
[2020-09-04] MEDS: METOPROLOL TARTRATE 25MG TABLET PO SCH ×2 (09:49→21:42)
[2020-09-04] MEDS: LORAZEPAM 1MG TABLET PO PRN ×2 (11:57→18:41)
[2020-09-04 12:00] VITALS: BP 136/89
[2020-09-04 16:00] VITALS: BP 141/91
[2020-09-04] MEDS ORDERED: INFLUENZA VACCINE 05/PF 0.5 ML VIAL IM ONE (16:15)
[2020-09-04] MEDS ORDERED: LIPASE/PROTEASE/AMYLASE 4,200/14,200/24,600 UNITS CAP DR PO SCH (17:40)
[2020-09-04] MEDS: LIPASE/PROTEASE/AMYLASE 5,000/17,000/24,000 UNITS CAP DR PO SCH (18:41)
[2020-09-04] MEDS: PIPERACILLIN/TAZOBACTAM 3.375 G in DEXT 5% WATER 100 ML IV SCH (18:44)
[2020-09-04 20:00] VITALS: BP 139/81
[2020-09-05] VITALS: BP 129/80
[2020-09-05] MEDS: PIPERACILLIN/TAZOBACTAM 3.375 G in DEXT 5% WATER 100 ML IV SCH ×3 (00:32→14:05)
[2020-09-05] MEDS: INSULIN LISPRO 100 UNITS/ML SUBCUT SCH ×5 (00:33→23:39)
[2020-09-05] MEDS: BLOOD SUGAR DIAGNOSTIC STRIP TEST SCH ×5 (00:33→23:32)
[2020-09-05 04:00] VITALS: BP 136/88
[2020-09-05] MEDS: LORAZEPAM 1MG TABLET PO PRN ×3 (04:24→18:40)
[2020-09-05] MEDS: LIPASE/PROTEASE/AMYLASE 5,000/17,000/24,000 UNITS CAP DR PO SCH ×3 (06:55→18:40)
[2020-09-05 07:51] LABS: BASOPHILS % 0.5 % (0.0-2.0); EOSINOPHILS % 1.9 % (0.0-5.0); HEMATOCRIT. 30.3 % (42.0-52.0); HEMOGLOBIN. 10.1 g/dL (14.0-18.0); LYMPHOCYTES % 17.8 % (20.0-50.0); MEAN CORPUSCULAR HEMOGLOBIN 27.4 pg (28.0-32.0); MEAN CORPUSCULAR VOLUME 82.2 fL (80.0-94.0); MEAN PLATELET VOLUME 8.2 fl (7.4-10.4); MONOCYTES % 5.9 % (2.0-8.0); NEUTROPHILS % 73.9 % (40.0-76.0); PLATELET 627 x1000/uL (130-400); RED BLOOD CELL COUNT 3.68 mill/uL (4.7-6.1); RED CELL DISTRIBUTION WIDTH 13.3 % (11.6-14.6)
[2020-09-05 08:00] VITALS: BP 147/53
[2020-09-05 08:03] LABS: CHLORIDE 112 mEq/L (98-107)
[2020-09-05 08:09] LABS: AMYLASE 42 IU/L (25-115)
[2020-09-05 08:14] LABS: CREATINE KINASE 39 IU/L (39-308)
[2020-09-05 08:22] LABS: T4 FREE 1.57 ng/dL (0.76-1.46)
[2020-09-05] MEDS: ACETAMINOPHEN 325MG TABLET PO PRN ×3 (09:47→18:40)
[2020-09-05] MEDS: METOPROLOL TARTRATE 25MG TABLET PO SCH ×2 (09:48→20:22)
[2020-09-05] MEDS: POTASSIUM CHLORIDE 20MEQ/PACKET PO SCH (09:48)
[2020-09-05] MEDS: QUETIAPINE FUMARATE 50MG TABLET PO SCH ×2 (09:48→20:22)
[2020-09-05] MEDS: THIAMINE HCL 100MG TABLET PO SCH (09:48)
[2020-09-05] MEDS: INSULIN GLARGINE UD 100 UNITS/ML SYR SUBCUT SCH (09:49)
[2020-09-05 12:00] VITALS: BP 138/89
[2020-09-05 16:00] VITALS: BP 115/74
[2020-09-05 20:00] VITALS: BP 116/57
[2020-09-06] VITALS: BP 148/70
[2020-09-06] MEDS: LORAZEPAM 1MG TABLET PO PRN ×3 (00:54→21:25)
[2020-09-06 04:00] VITALS: BP_SYST 124; BP_SYST 146; BP_DIAS 56; BP_DIAS 88
[2020-09-06] MEDS: LIPASE/PROTEASE/AMYLASE 5,000/17,000/24,000 UNITS CAP DR PO SCH ×3 (05:07→23:54)
[2020-09-06] MEDS: BLOOD SUGAR DIAGNOSTIC STRIP TEST SCH ×3 (05:48→17:16)
[2020-09-06] MEDS: INSULIN LISPRO 100 UNITS/ML SUBCUT SCH ×3 (05:52→17:17)
[2020-09-06] MEDS: ACETAMINOPHEN 325MG TABLET PO PRN (07:05)
[2020-09-06 08:00] VITALS: BP 125/78
[2020-09-06] MEDS: THIAMINE HCL 100MG TABLET PO SCH (09:14)
[2020-09-06] MEDS: QUETIAPINE FUMARATE 50MG TABLET PO SCH ×2 (09:14→21:15)
[2020-09-06] MEDS: METOPROLOL TARTRATE 25MG TABLET PO SCH ×2 (09:14→21:15)
[2020-09-06] MEDS: POTASSIUM CHLORIDE 20MEQ/PACKET PO SCH (09:14)
[2020-09-06] MEDS: INSULIN GLARGINE UD 100 UNITS/ML SYR SUBCUT SCH (09:19)
[2020-09-06 12:00] VITALS: BP 153/68
[2020-09-06 16:00] VITALS: BP 112/67
[2020-09-06 20:00] VITALS: BP 110/66
[2020-09-07] VITALS: BP 130/70
[2020-09-07] MEDS: BLOOD SUGAR DIAGNOSTIC STRIP TEST SCH ×3 (00:21→12:55)
[2020-09-07] MEDS: INSULIN LISPRO 100 UNITS/ML SUBCUT SCH ×3 (00:24→12:00)
[2020-09-07 04:00] VITALS: BP 148/60
[2020-09-07] MEDS: LORAZEPAM 1MG TABLET PO PRN (04:26)
[2020-09-07 08:00] VITALS: BP 123/83
[2020-09-07] MEDS: METOPROLOL TARTRATE 25MG TABLET PO SCH (09:13)
[2020-09-07] MEDS: POTASSIUM CHLORIDE 20MEQ/PACKET PO SCH (09:13)
[2020-09-07] MEDS: QUETIAPINE FUMARATE 50MG TABLET PO SCH (09:13)
[2020-09-07] MEDS: LIPASE/PROTEASE/AMYLASE 5,000/17,000/24,000 UNITS CAP DR PO SCH (09:14)
[2020-09-07] MEDS: THIAMINE HCL 100MG TABLET PO SCH (09:14)
[2020-09-07] MEDS: INSULIN GLARGINE UD 100 UNITS/ML SYR SUBCUT SCH (09:23)
[2020-09-07 12:40] VITALS: BP 123/83
== END 2020-09-07 14:00 | disposition home or self-care (01) | DRG 853 ==
LOC: ER 13:49 → CVICU 17:04 → EDBD 17:04 → EDBEDREQ 17:06 → EDBEDREQTM 17:06 → ENRESERV 17:22 → 8WST 09-02 22:51
PROVIDERS: ADMIT Internal Medicine; ATTEND Internal Medicine
PROC: 5A1955Z Respiratory Ventilation, Greater than 96 Consecutive Hours (ICD-10-PCS; 2020-08-24)
PROC: 02HV33Z Insertion of Infusion Device into Superior Vena Cava, Percutaneous Approach (ICD-10-PCS; 2020-08-24)
PROC: B548ZZA Ultrasonography of Superior Vena Cava, Guidance (ICD-10-PCS; 2020-08-24)
PROC: 0BH17EZ Insertion of Endotracheal Airway into Trachea, Via Natural or Artificial Opening (ICD-10-PCS; 2020-08-24)
PROC: 0KBT0ZZ Excision of Left Lower Leg Muscle, Open Approach (ICD-10-PCS; principal; 2020-08-28)
PROC: 0KBS0ZZ Excision of Right Lower Leg Muscle, Open Approach (ICD-10-PCS; 2020-08-28)
PROC: 0KBT0ZZ Excision of Left Lower Leg Muscle, Open Approach (ICD-10-PCS; 2020-08-31)
PROC: 0KBS0ZZ Excision of Right Lower Leg Muscle, Open Approach (ICD-10-PCS; 2020-08-31)
DX: A41.9 Sepsis, unspecified organism (principal); E11.10 Type 2 diabetes mellitus with ketoacidosis without coma; J69.0 Pneumonitis due to inhalation of food and vomit; J96.01 Acute respiratory failure with hypoxia; N17.0 Acute kidney failure with tubular necrosis; G92 Toxic encephalopathy; E43 Unspecified severe protein-calorie malnutrition; L02.416 Cutaneous abscess of left lower limb; D68.9 Coagulation defect, unspecified; B49 Unspecified mycosis; E87.0 Hyperosmolality and hypernatremia; E87.1 Hypo-osmolality and hyponatremia; K86.1 Other chronic pancreatitis; K92.2 Gastrointestinal hemorrhage, unspecified; L02.415 Cutaneous abscess of right lower limb; L03.116 Cellulitis of left lower limb; L03.115 Cellulitis of right lower limb; L89.016 Pressure-induced deep tissue damage of right elbow; L89.112 Pressure ulcer of right upper back, stage 2; L89.896 Pressure-induced deep tissue damage of other site; I10 Essential (primary) hypertension; D64.9 Anemia, unspecified; D69.6 Thrombocytopenia, unspecified; D72.10 Eosinophilia, unspecified; F19.10 Other psychoactive substance abuse, uncomplicated; Z79.4 Long term (current) use of insulin; Z79.899 Other long term (current) drug therapy; D63.8 Anemia in other chronic diseases classified elsewhere; E83.39 Other disorders of phosphorus metabolism; E87.6 Hypokalemia; K74.60 Unspecified cirrhosis of liver; Z68.27 Body mass index [BMI] 27.0-27.9, adult
CPT/HCPCS: 31500; 36415; 36600; 71045; 76937; 80048; 80053; 80202; 80305; 80320; 81003; 82040; 82150; 82375; 82550; 82553; 82607; 82746; 82805; 82947; 82962; 83036; 83540; 83550; 83615; 83735; 84100; 84132; 84134; 84145; 84295; 84439; 84443; 84478; 84484; 85025; 85379; 86803; 86850; 86900; 87070; 87075; 87106; 87340; 87389; 90686; 90715; 92610; 93005; 93306; 93312; 93970; 94002; 94003; 94640; 96365; 97112; 97116; 97162; 99291; C1725; C1893; C9113; J0330; J0456; J0696; J1815; J2060; J2248; J2250; J2405; J2543; J2704; J2765; J3010; J3370; J3480; J3490; J7030; J7040; J7050; J7060; U0003; A4315; G0480